=== PATIENT | female | born 1990 | race American Indian/Alaskan Native ===

== ENCOUNTER 2021-02-05 13:17 | Emergency (ER) | payer OTHER ==
[~2021-02-05] VITALS: Ht 154.9 cm; Wt 56.2 kg
[~2021-02-05 13:17] MED LIST: CEFTIN500 MG PO; PRENATAL CAPLE1 EACH PO
== END 2021-02-05 17:09 | disposition home or self-care (01) ==
LOC: ER 13:17
DX: O26.851 Spotting complicating pregnancy, first trimester (principal); O26.891 Other specified pregnancy related conditions, first trimester; O36.80X1 Pregnancy with inconclusive fetal viability, fetus 1; Z34.01 Encounter for supervision of normal first pregnancy, first trimester

== ENCOUNTER 2021-07-02 18:02 | Outpatient (CLI) | payer OTHER ==
[~2021-07-02 18:02] MED LIST changes: -CEPHALEXIN500 MG PO; -FERROUS SULFAT325 MG PO; -FLONASE SENSIM5.9 ML; -PRENATAL TABLE1 EAC1 PO
[2021-07-02] MEDS ORDERED: PRENATAL TABLE1 EAC1 PO (20:30)
[2021-07-03] MEDS ORDERED: CEPHALEXIN500 MG PO (09:51)
[2021-07-03] MEDS ORDERED: FERROUS SULFAT325 MG PO (09:51)
== END 2021-07-03 11:21 | disposition home or self-care (01) ==
LOC: OBS/DEL 18:02
PROVIDERS: ATTEND Obstetrics & Gynecology
DX: O23.43 Unspecified infection of urinary tract in pregnancy, third trimester (principal); Z3A.29 29 weeks gestation of pregnancy

== ENCOUNTER → 2021-07-02 | Emergency (ER) | payer OTHER ==
[~2021-07-02] MED LIST changes: +CEPHALEXIN500 MG PO; +FERROUS SULFAT325 MG PO; +FLONASE SENSIM5.9 ML; +PRENATAL TABLE1 EAC1 PO
== END | disposition left against medical advice (07) ==
LOC: ER 15:45
DX: Z53.20 Procedure and treatment not carried out because of patient's decision for unspecified reasons (principal)

== ENCOUNTER 2021-09-08 16:04 | Inpatient (IN) | payer OTHER ==
[~2021-09-08] VITALS: Ht 154.9 cm; Wt 65.8 kg
[~2021-09-08 16:04] MED LIST changes: +CEPHALEXIN500 MG PO; +FERROUS SULFAT325 MG PO; +PRENATAL TABLE1 EAC1 PO
[2021-09-09] MEDS ORDERED: FLONASE SENSIM5.9 ML (08:21)
== END 2021-09-10 11:20 | disposition home or self-care (01) | DRG 807 ==
LOC: LDR 16:04 → OB/GYN 23:07
PROVIDERS: ADMIT Obstetrics & Gynecology; ATTEND Obstetrics & Gynecology
PROC: 10E0XZZ Delivery of Products of Conception, External Approach (ICD-10-PCS; principal; 2021-09-08)
PROC: 0KQM0ZZ Repair Perineum Muscle, Open Approach (ICD-10-PCS; 2021-09-08)
PROC: 4A1HXCZ Monitoring of Products of Conception, Cardiac Rate, External Approach (ICD-10-PCS; 2021-09-08)
DX: O70.1 Second degree perineal laceration during delivery (principal); Z37.0 Single live birth; O99.820 Streptococcus B carrier state complicating pregnancy; Z3A.38 38 weeks gestation of pregnancy; Z20.822 Contact with and (suspected) exposure to COVID-19